=== PATIENT | female | born 1990 | race Caucasian/White ===

== ENCOUNTER 2018-05-11 12:43 | Emergency (ER) | payer OTHER ==
[~2018-05-11] VITALS: Ht 162.6 cm; Wt 62.6 kg
[2018-05-11 12:57] VITALS: BP 117/62; Ht 162.6 cm; Wt 62.6 kg
== END 2018-05-11 15:24 | disposition left against medical advice (07) ==
LOC: ED 12:43
DX: Z53.21 Procedure and treatment not carried out due to patient leaving prior to being seen by health care provider (principal)